=== PATIENT | female | born 1965 | race Caucasian/White ===

== ENCOUNTER 2016-07-08 10:10 | Emergency (ER) | payer MEDICAID ==
[~2016-07-08] VITALS: Ht 157.5 cm; Wt 67.9 kg
[2016-07-08 10:15] VITALS: Ht 157.5 cm; Wt 67.9 kg
[2016-07-08] MEDS ORDERED: ONDANSETRON (ODT) 4 MG TAB ODT STA (10:29)
[2016-07-08 10:35] LABS: URINE BLOOD (Dip) POC Negative (NEGATIVE)
[2016-07-08] MEDS ORDERED: ONDA8TAB14 PO (11:34)
[2016-07-08] MEDS ORDERED: ACET500C5 PO (11:35)
[2016-07-08] MEDS ORDERED: BISM262O23 PO (11:35)
--- NOTE | 2016-07-08 11:38 | ERD ---
ER Documentation Chief Complaint Date/Time DATE: 07/08/16 TIME: 11:36 Chief Complaint vomiting x 2 days HPI This 50-year-old female complains of vomiting diarrhea since yesterday. She may have had tactile fevers but no measured temperature. She denies any significant abdominal pain, urinary complaints of neck stiffness, rashes, sick contacts or foreign travel. The vomit is nonbilious nonbloody and there is no blood or mucus in the diarrhea. ROS All systems reviewed and are negative except as per history of present illness. Medications Home Meds Active Scripts Bismuth Subsalicylate* (Pepto-Bismol*) 262 Mg/15 Ml Oral.susp, 15 ML PO Q3H Y for DIARRHEA for 4 Days, ML Prov:CASSIDY ROGERS MD 07/08/16 Acetaminophen* (Tylophen*) 500 Mg Capsule, 1 CAP PO Q6H Y for PAIN AND OR ELEVATED TEMP, #15 CAP Prov:CASSIDY ROGERS MD 07/08/16 Ondansetron (Ondansetron Odt) 8 Mg Tab.rapdis, 8 MG PO Q6H Y for NAUSEA AND/OR VOMITING, #10 TAB Prov:CASSIDY ROGERS MD 07/08/16 Allergies Allergies: Coded Allergies: No Known Allergy (Unverified , 07/08/16) PMhx/Soc History of Surgery: Yes (HYSTERECTOMY ) Anesthesia Reaction: No Hx Neurological Disorder: No Hx Respiratory Disorders: No Hx Cardiac Disorders: No Hx Psychiatric Problems: No Hx Miscellaneous Medical Probl: No Hx Alcohol Use: No Hx Substance Use: No Hx Tobacco Use: No Smoking Status: Never smoker Physical Exam Vitals Vital Signs Date Time Temp Pulse Resp B/P Pulse Ox O2 Delivery O2 Flow Rate FiO2 07/08/16 10:15 99.0 91 20 139/68 99 Physical Exam Const: [] Alert, not ill-appearing. Head: Atraumatic Eyes: Normal Conjunctiva ENT: Normal External Ears, Nose and Mouth. Neck: Full range of motion..~ No meningismus. Resp: Clear to auscultation bilaterally Cardio: Regular rate and rhythm, no murmurs Abd: Soft, non tender, non distended. Normal bowel sounds Skin: No petechiae or rashes Back: No midline or flank tenderness Ext: No cyanosis, or edema Neur: Awake and alert Psych: Normal Mood and Affect Results 24 hrs Laboratory Tests Test 07/08/16 10:37 Bedside Urine pH (LAB) 5.5 Bedside Urine Protein (LAB) 2+ Bedside Urine Glucose (UA) Negative Bedside Urine Ketones (LAB) Trace Bedside Urine Blood Negative Bedside Urine Nitrite (LAB) Negative Bedside Urine Leukocyte Esterase (L Negative Current Medications Medications (Trade) Dose Ordered Sig/Ja Route PRN Reason Start Time Stop Time Status Last Admin Dose Admin Ondansetron HCl (Zofran Odt) 8 mg ONCE STAT ODT 07/08/16 10:29 07/08/16 10:30 DC 07/08/16 10:38 Procedures/MDM Urine is negative for leukocytes, nitrates, glucose. HCG is negative. Patient was given Zofran 8 mg by mouth and Tylenol. Patient has vomiting diarrhea of uncertain etiology for 2 days, so likely viral gastroenteritis. Signs or symptoms do not suggest appendicitis, obstruction, hepatobiliary disease, additional emergent causes of abdominal pain. She will be treated with Zofran and Pepto-Bismol Tylenol for close observation at home. She recheck the next day for vomiting despite treatment, lower abdominal pain, fevers, blood, new worsening symptoms or primary doctor this week. The patient was stable with no new complaints during the ER course. Clinically, there is no current evidence to suggest meningitis, sepsis, acute abdomen, pneumonia, acute coronary syndrome , pulmonary embolism, or any other emergent condition appearing to require further evaluation or hospitalization. The patient should certainly return for any new or worsening symptoms per the aftercare instructions. They should otherwise follow-up with her primary care doctor for reevaluation this week. Departure Diagnosis: Primary Impression: Vomiting and diarrhea Condition: Stable Patient Instructions: Self-Care for Vomiting and Diarrhea, Vomiting (6Y-Adult) Additional Instructions: URINE NORMAL. probablamente un virus que dura 2-4 posada. cheque otro sarbjit el proximo narciso para mas simptomas- vomito, dolor, wing, problemas con respirando , o con schumacher doctor primario. CASSIDY ROGERS MD July 08, 2016 11:38
== END 2016-07-08 11:42 | disposition home or self-care (01) ==
LOC: FTE 10:10
DX: R11.10 Vomiting, unspecified (principal); R19.7 Diarrhea, unspecified
CPT/HCPCS: 81003; Z7502; Z7610; 99283